=== PATIENT | male | born 1975 | race Caucasian/White ===

== ENCOUNTER 2020-08-31 03:35 | Inpatient (IN) | payer OTHER ==
[~2020-08-31] VITALS: Ht 182.9 cm; Wt 237.2 kg
[~2020-08-31 03:35] MED LIST: ASPIRIN EC81 MG PO; ZESTRIL10 MG PO
[2020-08-31 04:21] LABS: HEMOGLOBIN 15.8 gm/dl (14.0-17.5); RED BLOOD COUNT 5.21 M/UL (4.20-5.50)
[2020-08-31 04:47] LABS: BUN/CREATININE RATIO 19 (0-10)
[2020-08-31] MEDS ORDERED: LISINOPRIL20 MG PO (04:50)
[2020-08-31] MEDS ORDERED: AZITHROMYCIN500 MG PO (04:50)
[2020-08-31] MEDS ORDERED: VITAMIN D21250 MCG PO (04:51)
[2020-08-31] MEDS ORDERED: PREDNISONE5 MG PO (04:51)
[2020-09-01 04:11] LABS: HEMOGLOBIN 14.4 gm/dl (14.0-17.5); RED BLOOD COUNT 4.77 M/UL (4.20-5.50); WHITE BLOOD COUNT 11.8 K/UL (4.5-11.0)
[2020-09-01 04:57] LABS: BUN/CREATININE RATIO 34 (0-10)
[2020-09-02 02:17] LABS: HEMOGLOBIN 14.1 gm/dl (14.0-17.5); RED BLOOD COUNT 4.8 M/UL (4.20-5.50); WHITE BLOOD COUNT 12.3 K/UL (4.5-11.0)
[2020-09-02 02:59] LABS: BUN/CREATININE RATIO 39 (0-10)
--- NOTE | 2020-09-02 13:00 | NUR ---
PATIENT PULLED BIPAP OFF AND REFUSING TO REAPPLY AT THIS TIME. DR VINCENT HAD JUST MADE A VISIT TO SPEAK WITH THE PATIENT PER PATIENT REQUEST. PATIENT STATES HE HATES HAVING IT ON HIS FACE AND IS REFUSING TO REAPPLY. I NOTIFIED RT OF THE SITUATION AND THEY HAVE CAME AND APPLIED AIRVO ORDERED BY DR VINCENT TO TRY AND CALM PATIENT AND KEEP SATS ABOVE 92. THE RT SUCCESSFULLY INSTALLED THE AIRVO MACHINE IN THE PATIENTS ROOM AND SATS ARE 94% ON 60 L. PATIENT IS MUCH MORE SATISFIED THIS WAY WELL. DR VINCENT HAS AGREED THAT PATIENT CAN TAKE SMALL SIPS OF WATER WHEN HE IS THIRSTY BUT HAS EDUCATED THE PATIENT THAT HE CAN HAVE A REGULAR DIET BECAUSE HE HAS STATED THAT HE IS HUNGRY. WILL CONTINUE TO MONITOR PATIENT
[2020-09-03 05:12] LABS: HEMOGLOBIN 14.2 gm/dl (14.0-17.5); RED BLOOD COUNT 4.79 M/UL (4.20-5.50); WHITE BLOOD COUNT 11.4 K/UL (4.5-11.0)
[2020-09-03 05:29] LABS: BUN/CREATININE RATIO 28 (0-10)
[2020-09-05 04:02] LABS: HEMOGLOBIN 13.4 gm/dl (14.0-17.5); RED BLOOD COUNT 4.53 M/UL (4.20-5.50)
[2020-09-05 04:07] LABS: WHITE BLOOD COUNT 14.9 K/UL (4.5-11.0)
[2020-09-05 04:33] LABS: BUN/CREATININE RATIO 28 (0-10)
[2020-09-06 05:33] LABS: HEMOGLOBIN 14.1 gm/dl (14.0-17.5); RED BLOOD COUNT 4.71 M/UL (4.20-5.50); WHITE BLOOD COUNT 16.1 K/UL (4.5-11.0)
[2020-09-06 05:57] LABS: BUN/CREATININE RATIO 36 (0-10)
[2020-09-07 03:42] LABS: HEMOGLOBIN 13.5 gm/dl (14.0-17.5); RED BLOOD COUNT 4.57 M/UL (4.20-5.50)
[2020-09-07 04:00] LABS: BUN/CREATININE RATIO 42 (0-10)
--- NOTE | 2020-09-07 17:07 | NUR ---
LEFT UPPER ARM MIDLINE NOT FUNCTIONING. ATTEMPTED TO TROUBLESHOOT LINE, BUT LINE HAD BEEN KINKED. 18G X 10CM MIDLINE PLACED IN RIGHT BASILIC VEIN. ASPIRATES AND FLUSHES WELL.
[2020-09-08 05:50] LABS: BUN/CREATININE RATIO 52 (0-10)
[2020-09-09 03:50] LABS: HEMOGLOBIN 13.2 gm/dl (14.0-17.5); RED BLOOD COUNT 4.45 M/UL (4.20-5.50); WHITE BLOOD COUNT 14.8 K/UL (4.5-11.0)
[2020-09-09 04:20] LABS: BUN/CREATININE RATIO 59 (0-10)
[2020-09-10 04:49] LABS: HEMOGLOBIN 14.6 gm/dl (14.0-17.5); RED BLOOD COUNT 4.87 M/UL (4.20-5.50); WHITE BLOOD COUNT 14.5 K/UL (4.5-11.0)
[2020-09-10 05:04] LABS: BUN/CREATININE RATIO 62 (0-10)
[2020-09-11 03:04] LABS: HEMOGLOBIN 14.3 gm/dl (14.0-17.5); RED BLOOD COUNT 4.82 M/UL (4.20-5.50); WHITE BLOOD COUNT 15.4 K/UL (4.5-11.0)
[2020-09-11 03:12] LABS: BUN/CREATININE RATIO 64 (0-10)
[2020-09-12 04:22] LABS: RED BLOOD COUNT 4.72 M/UL (4.20-5.50); WHITE BLOOD COUNT 14.6 K/UL (4.5-11.0)
[2020-09-12 04:43] LABS: BUN/CREATININE RATIO 70 (0-10)
[2020-09-13 03:43] LABS: HEMOGLOBIN 13.4 gm/dl (14.0-17.5); RED BLOOD COUNT 4.55 M/UL (4.20-5.50); WHITE BLOOD COUNT 12.4 K/UL (4.5-11.0)
[2020-09-13 04:05] LABS: BUN/CREATININE RATIO 71 (0-10)
[2020-09-14 03:33] LABS: HEMOGLOBIN 13.3 gm/dl (14.0-17.5); RED BLOOD COUNT 4.48 M/UL (4.20-5.50); WHITE BLOOD COUNT 14.3 K/UL (4.5-11.0)
[2020-09-14 03:57] LABS: BUN/CREATININE RATIO 66 (0-10)
[2020-09-14] MEDS ORDERED: DECADRON6 MG PO (08:49)
[2020-09-14] MEDS ORDERED: PROAIR HFA8.5 GM INH (08:49)
[2020-09-14] MEDS ORDERED: AMOX TR-K CLV1 EAC4 PO (08:49)
[2020-09-14] MEDS ORDERED: LEVOTHYROXINE50 MCG PO (08:50)
== END 2020-09-15 17:20 | disposition home health service (06) | DRG 177 ==
LOC: ER1 03:35 → PROG CARE 05:06 → CDU 05:06 → PROG CARE 16:44
PROVIDERS: Family Medicine; Internal Medicine; ADMIT Internal Medicine
PROC: 5A09357 Assistance with Respiratory Ventilation, Less than 24 Consecutive Hours, Continuous Positive Airway Pressure (ICD-10-PCS; principal; 2020-08-31)
PROC: 8E0ZXY6 Isolation (ICD-10-PCS; 2020-08-31)
PROC: XW033E5 Introduction of Remdesivir Anti-infective into Peripheral Vein, Percutaneous Approach, New Technology Group 5 (ICD-10-PCS; 2020-08-31)
PROC: XW13325 Transfusion of Convalescent Plasma (Nonautologous) into Peripheral Vein, Percutaneous Approach, New Technology Group 5 (ICD-10-PCS; 2020-09-02)
DX: U07.1 COVID-19 (principal); J12.82 Pneumonia due to coronavirus disease 2019; J80 Acute respiratory distress syndrome; Z68.45 Body mass index [BMI] 70 or greater, adult; E87.2 Acidosis; N17.9 Acute kidney failure, unspecified; M62.82 Rhabdomyolysis; E66.2 Morbid (severe) obesity with alveolar hypoventilation; I10 Essential (primary) hypertension; Z66 Do not resuscitate; D72.829 Elevated white blood cell count, unspecified; E03.9 Hypothyroidism, unspecified; H54.7 Unspecified visual loss; E78.5 Hyperlipidemia, unspecified; M10.9 Gout, unspecified; Z83.3 Family history of diabetes mellitus; Z82.49 Family history of ischemic heart disease and other diseases of the circulatory system; Z79.82 Long term (current) use of aspirin; Z79.899 Other long term (current) drug therapy
CPT/HCPCS: 36415; 36600; 71045; 80048; 80053; 80076; 80202; 82550; 82553; 82803; 83605; 84484; 85025; 85027; 85610; 86900; 86901; 86927; 87040; 87081; 90471; 93005; 94640; 94660; 94664; 94760; 96365; 96366; 96375; 96376; 97110-GP-CQ; 97161; 97530; 97530-GP-CQ; 99285; C1751; J0360; J0456; J0696; J1100; J1205; J1650; J1940; J2185; J2930; J3370; J7030; J7070; U0002

== ENCOUNTER 2020-09-23 04:53 | Emergency (ER) | payer OTHER ==
[~2020-09-23 04:53] MED LIST changes: +AMOX TR-K CLV1 EAC4 PO; +AZITHROMYCIN500 MG PO; +DECADRON6 MG PO; +LEVOTHYROXINE50 MCG PO; +LISINOPRIL20 MG PO; +PREDNISONE5 MG PO; +PROAIR HFA8.5 GM INH; +VITAMIN D21250 MCG PO
[2020-09-23 05:34] LABS: HEMOGLOBIN 14.1 gm/dl (14.0-17.5); RED BLOOD COUNT 4.62 M/UL (4.20-5.50); WHITE BLOOD COUNT 18.1 K/UL (4.5-11.0)
[2020-09-23 05:59] LABS: BUN/CREATININE RATIO 15 (0-10)
[2020-09-23] MEDS ORDERED: ZOFRAN ODT 4 MG4 MG PO (12:55)
[2020-09-23] MEDS ORDERED: FLAGYL500 MG PO (12:55)
== END 2020-09-23 13:10 | disposition home or self-care (01) ==
LOC: ER1 04:53
PROVIDERS: Emergency Medicine
DX: R19.7 Diarrhea, unspecified (principal); R06.02 Shortness of breath; R03.1 Nonspecific low blood-pressure reading; Z86.16 Personal history of COVID-19
CPT/HCPCS: 36600; 71045; 80053; 81001; 82550; 82553; 82803; 83605; 83690; 83880; 84484; 85025; 85610; 85730; 87040; 87077; 94760; 99285; Q9967

== ENCOUNTER → 2020-10-28 | Outpatient (CLI) | payer OTHER ==
[~2020-10-28] MED LIST changes: +FLAGYL500 MG PO; +ZOFRAN ODT 4 MG4 MG PO
== END ==
LOC: ECHO 11:31
DX: R06.09 Other forms of dyspnea (principal)
CPT/HCPCS: ECHO; 93306